=== PATIENT | female | born 1940 | race Caucasian/White ===

== ENCOUNTER 2016-06-27 06:23 | Day surgery (SDC) | payer MEDICARE, OTHER ==
[~2016-06-27 06:23] MED LIST: KETOROLAC TROMETHAMINE 0.45% 4 DROP/0.4 ML DROPERETTE OS PRN; LIDOCAINE 4% INJ/PF (40 MG/ML) 5 ML AMPUL OS PRN
[2016-06-27] MEDS ORDERED: MIDAZOLAM 2 MG/2 ML INJ ONE (06:35)
[2016-06-27] MEDS: BESIFLOXACIN HCL 0.6% OPH SUSP 5 ML BOTTLE OS PRN ×4 (06:53→07:57)
[2016-06-27] MEDS: CYCLOPENTOLATE 0.2%/PHENYLEPHRINE 1% OPH SOLN 2 ML OS PRN ×3 (06:53→07:14)
[2016-06-27] MEDS: TROPICAMIDE 1% OPH SOLN 3 ML OS PRN ×3 (06:53→07:14)
[2016-06-27] MEDS: TETRACAINE HCL 0.5% OPH SOLN 2 ML OS PRN ×3 (06:54→07:34)
[2016-06-27] MEDS ORDERED: EPINEPHRINE INJ/PF 1 MG/1 ML AMPULE ONE (07:10)
[2016-06-27] MEDS ORDERED: LIDOCAINE 1% INJ-PF (10 MG/ML) 30 ML SDV ONE (07:11)
[2016-06-27] MEDS ORDERED: CHONDR SU A NA/HYALUR INTRAOC KIT (SURGICARE) ONE (07:11)
--- NOTE | 2016-06-27 13:04 | [facility] OPERATIVE REPORT E ---
[facility] Operative Report NAME: JESSEE SOLER AGE: 75Y DATE OF SURGERY: 06/27/2016 ROOM: PREOPERATIVE DIAGNOSIS: CATARACT, LEFT EYE. POSTOPERATIVE DIAGNOSIS: CATARACT, LEFT EYE. OPERATION: Cataract extraction with intraocular lens implant of the left eye. SURGEON: ANDREW NAGEL M.D. ANESTHESIA: Topical. PROCEDURE: After obtaining appropriate consent, the patient's left eye was prepped and draped in sterile fashion as well as the surgeon in a sterile manner and cataract surgery was started. First a paracentesis blade was used to make a small side-port incision. Viscoelastic was used to inflate the anterior chamber. Next a 2.4-mm incision was made with the paracentesis blade. A continuous capsulorrhexis incision was made using a cystotome and Utrata forceps. Following this hydrodissection was carried out to make the lens fully loose and mobile and it was rotated 90 degrees. Following this, a lzfxxg-gov-mcqiiey technique was used to phacoemulsify the lens with a CDE of 10.56. The remaining cortex was removed with irrigation/aspiration. Provisc was instilled into the capsular bag to inflate the bag. A SN60WF, 22.5 diopter lens was placed. The remaining viscoelastic material was removed with irrigation/aspiration. Following this, a 10-0 nylon suture was used to close the incision and it was found to be watertight. Vigamox was instilled in the eye and a protective shield was placed over the eye. The patient returned to the postoperative recovery in stable condition. DICTATING PHYSICIAN: ANDREW NAGEL M.D. 1209M 1300 PHY#: [id number] ID: [id number] JOB#: [id number] ACCT: [id number] cc:ANDREW NAGEL M.D. >
--- NOTE | 2016-06-27 13:09 | [facility] DISCHARGE SUMMARY E ---
[facility] Discharge Summary NAME: JESSEE SOELR AGE: 75Y ADMITTED: 06/27/2016 DISCHARGED: 06/27/2016 DIAGNOSIS: CATARACT, LEFT EYE. SUMMARY: This is a 75-year-old female who underwent cataract extraction, left eye. She underwent surgery because she was having difficulty seeing medicine bottles and newspaper with increased glare at night. DISCHARGE INSTRUCTIONS: She should be on a regular diet, no bending at waist, and no heavy lifting. She should use her Besivance, Ilevro and Durezol at 3 p.m. and 8 p.m. and sleep with a rigid shield. I will see for a 1-day postoperative tomorrow. DICTATING PHYSICIAN: ANDREW NAGEL M.D. 1209M [id number] PHY#: [id number] ID: [id number] JOB#: [id number] ACCT: [id number] cc:ANDREW NAGEL M.D. >
== END 2016-06-27 08:44 | disposition home or self-care (01) ==
LOC: SC 06:23
PROVIDERS: ATTEND Internal Medicine
PROC: 08RK3JZ Replacement of Left Lens with Synthetic Substitute, Percutaneous Approach (ICD-10-PCS; principal; 2016-06-27 07:30)
DX: H25.89 Other age-related cataract (principal); H02.105 Unspecified ectropion of left lower eyelid; H02.102 Unspecified ectropion of right lower eyelid; H04.123 Dry eye syndrome of bilateral lacrimal glands; E78.00 Pure hypercholesterolemia, unspecified; I10 Essential (primary) hypertension; M19.90 Unspecified osteoarthritis, unspecified site; Z79.899 Other long term (current) drug therapy; Z87.891 Personal history of nicotine dependence
CPT/HCPCS: 66984; V2632; J2250; J3490 ×2; A9270; J0171; 142

== ENCOUNTER → 2016-08-21 | Outpatient (CLI) | payer MEDICARE, OTHER | LOC: WI 10:15 | PROVIDERS: ATTEND Specialist | DX: C50.411 Malignant neoplasm of upper-outer quadrant of right female breast (principal) | CPT/HCPCS: 77066; G0204 ==

== ENCOUNTER 2016-09-21 08:24 | Day surgery (SDC) | payer MEDICARE, OTHER ==
[~2016-09-21 08:24] MED LIST changes: +BUPIVACAINE HCL 0.75% INJ/PF (7.5 MG/1 ML) 10 ML SDV OD PRN; +KETOROLAC TROMETHAMINE 0.45% 4 DROP/0.4 ML DROPERETTE OD PRN; -KETOROLAC TROMETHAMINE 0.45% 4 DROP/0.4 ML DROPERETTE OS PRN; -LIDOCAINE 4% INJ/PF (40 MG/ML) 5 ML AMPUL OS PRN
[2016-09-21] MEDS ORDERED: LIDOCAINE 1% INJ-PF (10 MG/ML) 30 ML SDV ONE (08:58)
[2016-09-21] MEDS ORDERED: EPINEPHRINE INJ/PF 1 MG/1 ML AMPULE ONE (08:58)
[2016-09-21] MEDS ORDERED: CHONDR SU A NA/HYALUR INTRAOC KIT (SURGICARE) ONE (08:59)
[2016-09-21] MEDS: CYCLOPENTOLATE 0.2%/PHENYLEPHRINE 1% OPH SOLN 2 ML OD PRN ×3 (09:23→09:38)
[2016-09-21] MEDS: TETRACAINE HCL 0.5% OPH SOLN 2 ML OD PRN ×3 (09:23→09:58)
[2016-09-21] MEDS: TROPICAMIDE 1% OPH SOLN 3 ML OD PRN ×3 (09:23→09:38)
[2016-09-21] MEDS: BESIFLOXACIN HCL 0.6% OPH SUSP 5 ML BOTTLE OD PRN ×3 (09:23→10:23)
[2016-09-21] MEDS ORDERED: MIDAZOLAM 2 MG/2 ML INJ ONE (09:54)
[2016-09-21] MEDS ORDERED: TOBRAMYCIN SULFATE/DEXAMETH OPH OINTMENT 3.5 GM ONE (10:22)
--- NOTE | 2016-09-25 11:59 | [facility] OPERATIVE REPORT E ---
[facility] Operative Report NAME: JESSEE SOLER AGE: 76Y DATE OF SURGERY: 09/21/2016 ROOM: PREOPERATIVE DIAGNOSIS: Cataract, right eye. POSTOPERATIVE DIAGNOSIS: Cataract, right eye. OPERATION: Cataract extraction with intraocular lens implant of the right eye. SURGEON: ANDREW NAGEL M.D. ANESTHESIA: Topical. PROCEDURE: After obtaining appropriate consent, the patient's right eye was prepped and draped in sterile fashion as well as the surgeon in a sterile manner and cataract surgery was started. First a paracentesis blade was used to make a small side-port incision. Viscoelastic was used to inflate the anterior chamber. Next a 2.4 mm incision was made with the paracentesis blade. A continuous capsulorrhexis incision was made using a cystotome and Utrata forceps. Following this hydrodissection was carried out to make the lens fully loose and mobile and it was rotated 90 degrees. Following this, a efqumh-xud-cdqnhxm technique was used to phacoemulsify the lens with a CDE of 9.46. The remaining cortex was removed with irrigation/aspiration. Provisc was instilled into the capsular bag to inflate the bag. A SN60WF, 22.5 diopter lens was placed. The remaining viscoelastic material was removed with irrigation/aspiration. Following this, a 10-0 nylon suture was used to close the incision and it was found to be watertight. Vigamox was instilled in the eye and a protective shield was placed over the eye. The patient returned to the postoperative recovery in stable condition. DICTATING PHYSICIAN: ANDREW NAGEL M.D. 1272M 1155 PHY#: [id number] ID: [id number] JOB#: [id number] ACCT: [id number] cc:ANDREW NAGEL M.D. >
--- NOTE | 2016-09-25 12:04 | [facility] DISCHARGE SUMMARY E ---
[facility] Discharge Summary NAME: JESSEE SOLER AGE: 76Y ADMITTED: 09/21/2016 DISCHARGED: 09/21/2016 HISTORY OF PRESENT ILLNESS AND HOSPITAL COURSE: This is a 76-year-old female who underwent cataract extraction of her right eye. DIAGNOSIS: Cataract, right eye. HOSPITAL COURSE: She underwent surgery because she was having difficulty seeing road signs and medicine bottles and newspaper. DISCHARGE INSTRUCTIONS: 1. She should be on a regular diet. 2. No bending at her waist and no heavy lifting. 3. She should use Besivance, Ilevro, and Durezol at 3 p.m. and 8 p.m. and sleep with a rigid shield. 4. I will see her for her 1-day postoperative tomorrow. DICTATING PHYSICIAN: ANDREW NAGEL M.D. 1272M 1157 PHY#: [id number] ID: [id number] JOB#: [id number] ACCT: [id number] cc:ANDREW NAGEL M.D. >
== END 2016-09-21 11:14 | disposition home or self-care (01) ==
LOC: SC 08:24
PROVIDERS: ATTEND Internal Medicine
PROC: 08RJ3JZ Replacement of Right Lens with Synthetic Substitute, Percutaneous Approach (ICD-10-PCS; principal; 2016-09-21 10:00)
DX: H25.89 Other age-related cataract (principal); Z96.1 Presence of intraocular lens; H04.123 Dry eye syndrome of bilateral lacrimal glands; E78.00 Pure hypercholesterolemia, unspecified; E03.9 Hypothyroidism, unspecified; I10 Essential (primary) hypertension; M19.90 Unspecified osteoarthritis, unspecified site; Z87.891 Personal history of nicotine dependence; Z79.899 Other long term (current) drug therapy
CPT/HCPCS: 66984; V2632; J2250; J3490 ×3; J0171; 142